=== PATIENT | male | born 1945 | race Caucasian/White ===

== ENCOUNTER → 2017-05-04 | Outpatient (CLI) | payer OTHER ==
[~2017-05-04] VITALS: Ht 182.9 cm; Wt 90.7 kg
[~2017-05-04] MED LIST: ALDACTONE25 MG PO; AMBIEN 10 MG TA10 MG PO; AMBIEN 5 MG TABL5 M1 PO; ASPIR 8181 MG PO; ASTAGRAF XL0.5 MG PO; ASTAGRAF XL1 MG PO; CELLCEPT500 MG PO; CO Q-10100 MG PO; COZAAR 25 MG TA25 M1 PO; COZAAR 50 MG TA50 M2 PO; DEMADEX20 MG PO; LANOXIN 0.120.125 M1 PO; LASIX 40 MG TAB40 M2 PO; LIPITOR 20 MG T20 M1 PO; LISINOPRIL5 MG PO; PACERONE 200 M200 M1 PO; PRADAXA150 MG PO; PRAVACHOL40 MG PO; SIMVASTATIN40 MG PO; TOPROL XL50 MG PO; VITAMIN D2000 UNIT PO; ZOCOR40 MG PO
--- NOTE | ~2017-05-04 | P ---
[facility] [place] [place] [address] PROCEDURE REPORT Name: CARL DIAZ Room #: [facility]#: [id number] Admission: 05/04/17 Attend Phys: Marbin Sin MD Discharge: Date of : 47 Report #: [id number] THIS REPORT FOR: //name// CC: Ramiro Sin BRIEF HISTORY: The patient is a 71-year-old male with history of colon polyps. He also has a history of heart transplant is on chronic immunosuppression. PREOPERATIVE DIAGNOSES: History of colon polyps and immunosuppression for heart transplants. POSTOPERATIVE DIAGNOSES: 1. Diminutive polyp, distal transverse colon. 2. Moderate internal hemorrhoids. MEDICATIONS: Deep sedation with propofol per anesthesia. SPECIMEN: Polyp from the distal transverse colon. ESTIMATED BLOOD LOSS: 3 mL. PROCEDURE: Colonoscopy to cecum and terminal ileum with biopsy. FINDINGS: Prior to propofol sedation, procedure of colonoscopy discussed with the patient as well as potential risks and its complications. He indicates he understands and desires to proceed. DESCRIPTION OF PROCEDURE: With the patient in left lateral decubitus position, digital examination was completed which revealed no abnormalities. Subsequently, the LiveAction video colonoscope was introduced into the rectum and advanced under direct vision to the cecum. Done with minimal difficulty. The cecum was identified by the ileocecal valve and the appendiceal orifice. I was able to visualize the distal segment of terminal ileum, which was inspected and noted to be unremarkable. At that point, the scope was slowly withdrawn and careful circumferential views obtained including retroflexing the scope in the ascending colon. Upon slow withdrawal of the scope, the prep was noted to be excellent. The mucosa was within normal limits, normal vascular pattern, normal light reflex. As we withdrew the scope, normal colonic mucosa was noted. The mucosa was within normal limits, normal vascular pattern, normal light reflex. As we withdrew the scope, no abnormalities were noted until the distal transverse colon was reached. At that point, a diminutive polyp seen and removed by biopsy. Scope was further withdrawn and no additional polyps were seen. Scope was withdrawn in the rectum. Upon retroflexion moderate internal hemorrhoids were seen. Scope was withdrawn. The patient tolerated the [facility] [address] [place] [address] PROCEDURE REPORT Name: CARL DIAZ Priscilla Room #: [facility]#: [id number] Admission: 05/04/17 Attend Phys: Marbin Sin MD Discharge: Date of : 47 Report #: [id number] procedure well. CONDITION OF THE PATIENT UPON DISCHARGE: Following procedure, the patient drowsy, aroused, conversant and will be discharged home when fully ambulatory. INSTRUCTIONS TO THE PATIENT AND FAMILY AT THE TIME OF DISCHARGE: One small polyp identified and removed as described above. In view of his history of polyps and immunosuppression, return in 5 years for followup colonoscopy. He will otherwise return to care of Dr. Raymond Simon and Dr. Moseley. Withdrawal time from the cecum was 13 minutes 55 seconds. Last colonoscopy was approximately 6 years ago. <ELECTRONICALLY SIGNED> By: Marbin Sin MD 05/05/17 2049 [id number] Marbin Sin MD /nt
--- NOTE | ~2017-05-04 | S ---
[facility] [address] [place] [address] SURGICAL PATH RPT PROCEDURE Name: ALIRIO METCALF Priscilla Room #: REG JANEEN Jones.Priscilla.#: [id number] Admission: 05/04/17 Date of : 47 Discharge: Report #: [id number] Path Case #: [id number] PATHOLOGY REPORT COLLECTION DATE: 05/04/2017 RECEIVED DATE: 05/05/2017 SUBMITTING PHYS: Dr. Marbin Sin OTHER PHYS: Dr. Raymond Simon SPECIMEN(S) RECEIVED: A.Bx of polyp at distal transverse colon * * * * * * * * * * * * FINAL DIAGNOSIS: "BX of polyp at distal transverse colon", biopsy: - Tubular adenoma; no high grade dysplasia. (CLW:mml; 05/08/2017) PATHOLOGIST: Citlali Walker M.D. REPORT ELECTRONICALLY SIGNED BY: Citlali Walker M.D. DATE/TIME: 05/08/2017 22:08 * * * * * * * * * * * * GROSS PATHOLOGY: Received in formalin labeled "Alirio Metcalf, BX polyp at distal transverse colon," is a segment of robbins soft tissue measuring 0.3 cm in maximum dimension. The specimen is submitted entirely in cassette A1. (TSD; 05/05/2017) CLINICAL HISTORY: Pre-OP DX: Hx of polyps Post-OP DX: Colon polyps and hemorrhoids INITIAL CPT CODE(S): A; 55342 Professional services performed by [facility] at [facility] [address] [place] [address] Technical services performed by [facility] at [address] [place] [address], [place] [address], [place] [address]. [facility] [address] [place] [address] SURGICAL PATH RPT PROCEDURE Name: ALIRIO METCALF Room #: REG JANEEN Benitez.#: [id number] Admission: 05/04/17 Date of : 47 Discharge: Report #: [id number] Path Case #: [id number] [facility] [address] [address] PHONE: [phone] DIRECTOR: Michael Aaron M.D. * * * END OF REPORT * * *
== END | disposition home or self-care (01) ==
LOC: GI 07:56
DX: Z09 Encounter for follow-up examination after completed treatment for conditions other than malignant neoplasm (principal); Z87.19 Personal history of other diseases of the digestive system; D12.3 Benign neoplasm of transverse colon; K64.8 Other hemorrhoids; Z87.891 Personal history of nicotine dependence; Z94.1 Heart transplant status; E78.5 Hyperlipidemia, unspecified; I48.2 Chronic atrial fibrillation; I42.8 Other cardiomyopathies; I50.22 Chronic systolic (congestive) heart failure
CPT/HCPCS: 62110; 62900